=== PATIENT | male | born 1995 | race Caucasian/White ===

== ENCOUNTER 2017-06-21 17:47 | Emergency (ER) | payer BC, OTHER ==
--- NOTE | 2017-06-21 19:08 | RAD ---
RIGHT ANKLE: 06/21/17 Three views. HISTORY: Injured right ankle with pain. Soft tissue swelling noted laterally. No evidence of fracture identified. IMPRESSION: No acute fracture identified. POS: [place]
== END 2017-06-21 19:26 | disposition home or self-care (01) ==
LOC: SCSER 17:47
DX: S93.401A Sprain of unspecified ligament of right ankle, initial encounter (principal)

== ENCOUNTER 2018-03-31 02:35 | Emergency (ER) | payer BC, OTHER ==
[2018-03-31] MEDS ORDERED: Sulfameth/Trimethoprim DS 800-160mg TAB ONE (02:56)
== END 2018-03-31 03:09 | disposition home or self-care (01) ==
LOC: SCSER 02:35
DX: L03.116 Cellulitis of left lower limb (principal); L03.126 Acute lymphangitis of left lower limb; G43.409 Hemiplegic migraine, not intractable, without status migrainosus; F17.210 Nicotine dependence, cigarettes, uncomplicated; J45.909 Unspecified asthma, uncomplicated
CPT/HCPCS: 99283

== ENCOUNTER 2020-06-09 09:45 | Outpatient (CLI) | payer BC ==
--- NOTE | 2020-06-09 11:09 | MRI ---
MR the lumbar spine without contrast: 06/09/2020 History: Low back pain, lifting injury, left lower extremity radiculopathy COMPARISON: None. TECHNIQUE: Multiplanar multisequence MR images were obtained of lumbar spine without IV contrast FINDINGS: On the basis of 5 lumbar type vertebral bodies, conus medullaris terminates at theL1-2 level. Sagittal STIR imaging demonstrates no focal area of osseous marrow edema. T12-L1:There is a small left paracentral disc protrusion. There is mild disc space narrowing. No sign ificant central canal or neural foraminal stenosis. L1-2:Unremarkable L2-3:Unremarkable L3-4:Unremarkable L4-5:There is disc space narrowing with disc desiccation. There is a central annular tear. No signifi cant central canal stenosis is noted. There is mild bilateral facet hypertrophy with no significant neural foraminal stenosis. L5-S1:There is disc space narrowing and disc desiccation with a small central disc protrusion and an associated central annular tear. No significant associated central canal stenosis. Mild bilateral facet hypertrophy, left greater than right. No significant neural foraminal stenosis. Image retroperitoneal structures demonstrateno acute findings. IMPRESSION: Degenerative change at the L4-5 and L5-S1 levels as detailed above.
== END 2020-06-09 09:46 | disposition home or self-care (01) ==
LOC: TBSIIMAG 09:45
PROVIDERS: ATTEND Family Medicine
DX: M47.26 Other spondylosis with radiculopathy, lumbar region (principal); M47.817 Spondylosis without myelopathy or radiculopathy, lumbosacral region
CPT/HCPCS: 72148

== ENCOUNTER 2023-06-21 11:06 | Emergency (ER) | payer OTHER, BC | END 2023-06-21 11:54 | disposition home or self-care (01) | LOC: ERS 11:06 | DX: S46.812A Strain of other muscles, fascia and tendons at shoulder and upper arm level, left arm, initial encounter (principal); M54.12 Radiculopathy, cervical region; F17.290 Nicotine dependence, other tobacco product, uncomplicated; V69.9XXA Occupant (driver) (passenger) of heavy transport vehicle injured in unspecified traffic accident, initial encounter; W22.10XA Striking against or struck by unspecified automobile airbag, initial encounter | CPT/HCPCS: 99283 ==

== ENCOUNTER 2023-06-22 16:41 | Emergency (ER) | payer OTHER, BC | END 2023-06-22 18:28 | disposition home or self-care (01) | LOC: ERS 16:41 | DX: R29.898 Other symptoms and signs involving the musculoskeletal system (principal); F17.290 Nicotine dependence, other tobacco product, uncomplicated; V69.9XXA Occupant (driver) (passenger) of heavy transport vehicle injured in unspecified traffic accident, initial encounter | CPT/HCPCS: 70450; 72125 ==